=== PATIENT | male | born 1980 | race Caucasian/White ===

== ENCOUNTER 2020-11-06 18:56 | Emergency (ER) | payer BC, OTHER ==
[~2020-11-06] VITALS: Ht 190.5 cm; Wt 125.2 kg
[2020-11-06] MEDS ORDERED: LIDOCAINE 1% INJ 20 ML 20 ML VIAL ONE (19:24)
--- NOTE | 2020-11-06 19:30 | ED Upper Extremity ---
General Chief Complaint: Laceration Stated Complaint: LT INDEX FINGER LAC Nursing Triage Note: PT AMBULATE TO ROOM FS02 WITH C/O LAC TO FINGER ON LEFT HAND. PT REPORTS HE WAS CUTTING A BOARD ON A SAW AND CUT FINGER. Nursing Sepsis Screen: No Definite Risk Source: patient History of Present Illness Date Seen by Provider: Nov 06, 2020 Time Seen by Provider: 19:15 Initial Comments Patient is a 39-year-old right-handed male who presents with a semi- circumferential deep laceration proximal to his left second distal interphalangeal joint with out joint involvement. Patient was using a michelle when he cut his finger just prior to ED arrival. . There is no loss of joint mobility. The distal flap is slightly devitalized but closely approximates. There is no debris or contamination noted to be present. Bleeding is controlled tetanus is up-to-date. Onset: just prior to arrival Pain/Injury Location: left 2nd finger Method of Injury: incised Modifying Factors: Improves With Other Allergies and Home Medications Patient Home Medication List Home Medication List Reviewed: Yes Review of Systems Constitutional: no symptoms reported Musculoskeletal: see HPI Past Byajwer-Uktfxj-Mebjbl Hx Past Med/Social Hx: Reviewed Nursing Past Med/Soc Hx Patient Social History Alcohol Use: Occasionally Uses Smoking Status: Never a Smoker Type Used: Smokeless Tobacco 2nd Hand Smoke Exposure: No Recent Infectious Disease Expo: No Recent Hopitalizations: No Seasonal Allergies Seasonal Allergies: No Past Medical History Surgeries: No Respiratory: No Cardiac: No Neurological: No Genitourinary: No Gastrointestinal: No Musculoskeletal: No Endocrine: No HEENT: No Cancer: No Psychosocial: No Integumentary: No Blood Disorders: No Physical Exam Vital Signs Vital Signs - First Documented 11/06/20 19:11 Temp 36.6 Pulse 81 Resp 16 B/P (MAP) 150/100 (117) O2 Delivery Room Air Capillary Refill : Less Than 3 Seconds Height, Weight, BMI Height: '" Weight: lbs. oz. kg; 34.00 BMI Method: General Appearance: mild distress Hand: laceration (3-1/2 cm curvilinear full-thickness semicircumferential laceration of left second digit proximal to the distal interphalangeal increase involving the pad surface of the finger. No nail involvement. Bleeding is controlled. No foreign bodies then applied. Range of motion is intact. 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 as tested Progress/Results/Core Measures Results/Orders My Orders Orders - LEONA REA DO Finger(S) (11/06/20 19:24) Lidocaine 1% Inj 20 Ml (Xylocaine 1% Inj (11/06/20 19:24) Medications Given in ED Current Medications Medications Dose Ordered Sig/Linda Route Start Time Stop Time Status Last Admin Dose Admin Lidocaine HCl 20 ml STK-MED ONCE .ROUTE 11/06/20 19:24 11/06/20 19:28 DC 11/06/20 19:45 20 ML Vital Signs/I&O 11/06/20 19:11 Temp 36.6 Pulse 81 Resp 16 B/P (MAP) 150/100 (117) O2 Delivery Room Air Blood Pressure Mean: 117 Departure Communication (Admissions) Left fingers: No retained opaque foreign body or fracture. Wound thoroughly irrigated with copious tap water. Squared, no foreign bodies noted to be present. Wound at the size with 4 mL's of 1% lidocaine without epinephrine. Wound closed with 9 simple interrupted sutures using 4-0 Prolene. Good wound edge approximation noted. Wound cleanse, closed and bandaged. First dose of antibiotics given. Typical wound care instructions provided provided. Return precautions reviewed. Patient verbalizes understanding agreement discharge instructions prior to departure. Pseudomonal Risk: No known risk Impression Primary Impression: Laceration of left index finger Disposition: 01 HOME, SELF-CARE Condition: Stable Departure-Patient Inst. Referrals: MANOJ VALENCIA MD (PCP/Family) Primary Care Physician Patient Instructions: Laceration Repair With Stitches ED Add. Discharge Instructions: Please keep wound clean trying covered. Change changes this once or twice daily and more often as needed if soiled. Complete full course of antibiotics and follow up with PCP or return to the ED in 5 days for wound reevaluation. Return sooner if signs or symptoms of infection. Sutures to be removed in 12-14 days. All discharge instructions reviewed with patient and/or family. Voiced understanding. Scripts Hydrocodone/Acetaminophen (Hydrocodone-Acetamin 5-325 mg) 1 Each Tablet 1 EACH PO Q6H, #12 TAB Prov: LEONA REA DO 11/06/20 Cephalexin (Keflex) 500 Mg Capsule 500 MG PO TID, #21 CAP Prov: LEONA REA DO 11/06/20 Work/School Note: Work Release Form Date Seen in the Emergency Department: Nov 06, 2020 Return to Work: Nov 07, 2020 Other Restrictions Listed Below: Limit left hand/index finger use for 2 weeks due to possible infection. LEONA REA DO Nov 06, 2020 19:30
--- NOTE | 2020-11-06 19:43 | Diagnostic Imaging Report ---
INDICATION: Injury to left 2nd finger AP and oblique and lateral views of the left 2nd finger are obtained. There is soft tissue swelling. On the oblique view, there does appear to be a linear nondisplaced fracture of the base of the 2nd distal phalanx, extending to the DIP joint. There is no radiopaque foreign body. IMPRESSION: Nondisplaced chip fracture of the 2nd distal phalanx at the DIP joint. No metallic foreign body. Dictated by: Dictated on workstation # [id number]
[2020-11-06] MEDS ORDERED: ACHD5005 PO (20:28)
[2020-11-06] MEDS ORDERED: CEPH-507 PO (20:28)
[2020-11-06] MEDS ORDERED: HYDROcodone/APAP 5 MG/325 MG (LORTAB) TAB ONE (20:31)
[2020-11-06] MEDS ORDERED: CEPHALEXIN 250 MG (KEFLEX) CAP PO ONE (20:32)
[2020-11-06 20:39] VITALS: BP 129/70
== END 2020-11-06 20:39 | disposition home or self-care (01) ==
LOC: ER FS 18:58
DX: S61.211A Laceration without foreign body of left index finger without damage to nail, initial encounter (principal); W29.8XXA Contact with other powered hand tools and household machinery, initial encounter
CPT/HCPCS: 73140